=== PATIENT | male | born 1960 ===

== ENCOUNTER 2017-12-04 17:01 | Inpatient (IN) ==
[2017-12-04] MEDS ORDERED: DEXTROSE 50% 25 GM/50 ML VIAL IV ONE (19:33)
[2017-12-04] MEDS ORDERED: GLUCAGON 1 MG VIAL IM PRN (20:04)
[2017-12-04] MEDS ORDERED: ACETAMINOPHEN 325 MG TABLET PO PRN (20:04)
[2017-12-04] MEDS ORDERED: DEXTROSE 50% 25 GM/50 ML VIAL IV PRN (20:04)
[2017-12-04] MEDS ORDERED: ONDANSETRON 4 MG/2 ML VIAL IV PRN (20:04)
[2017-12-04] MEDS: DEXTROSE 10% 1,000 ML IV SCH (20:27)
[2017-12-04] MEDS: DEXAMETHASONE 4 MG/1 ML VIAL IV SCH (20:27)
[2017-12-04 20:50] LABS: Calcium 7.7 MG/DL (8.5-10.1); Osmolality,Calculated 278.1 MOS/KG (273-304); Potassium 2.6 MMOL/L (3.5-5.1)
[2017-12-04] MEDS: POTASSIUM CHLORIDE 20 MEQ TABLET PO SCH (20:54)
[2017-12-04 22:28] LABS: Apearance,Urine CLEAR (Clear); Bilirubin,Urine Negative (Negative); Blood, Urine Negative (Negative); Glucose,Urine (UA) 150 mg/dL (Negative); Ketones,Urine Negative (Negative); Mucus,Urine Occasional /LPF (Occasional); Nitrite,Urine Negative (Negative); Protein,Urine 30 MG/DL; RBC,Urine <1 /HPF (0-4); Squamous Epithelial Cell,Urine Occasional /HPF (0-10); Urine Color Yellow (Yellow); Urine Specific Gravity 1.016 (1.001-1.035); Urine Urobilinogen < 2.0 EU/DL (0.2-1.0); WBC,Urine 1 /HPF (0-6)
[2017-12-04] MEDS: ENOXAPARIN 40 MG/0.4 ML SYRINGE SUBCUT SCH (22:40)
[2017-12-05] MEDS: DEXAMETHASONE 4 MG/1 ML VIAL IV SCH ×4 (02:19→20:57)
[2017-12-05] MEDS: POTASSIUM CHLORIDE 20 MEQ TABLET PO SCH ×6 (02:19→20:57)
[2017-12-05] MEDS: INSULIN LISPRO 100 UNIT/ML SUBCUT SCH ×6 (02:19→20:57)
[2017-12-05 05:56] LABS: Blood Urea Nitrogen 9 MG/DL (7-18); Calcium 8.3 MG/DL (8.5-10.1); Glucose 158 MG/DL (74-106); Osmolality,Calculated 284.1 MOS/KG (273-304); Potassium 3.1 MMOL/L (3.5-5.1); Sodium 142 MMOL/L (136-145); Troponin I Only < 0.015 NG/ML (0.00-0.045)
[2017-12-05] MEDS: DEXTROSE 10% 1,000 ML IV SCH (06:19)
[2017-12-05] MEDS ORDERED: chlordiazePOXIDE 25 MG CAPSULE PO PRN (07:32)
[2017-12-05] MEDS ORDERED: POTASSIUM CHLORIDE 20 MEQ TABLET PO ONE (07:35)
[2017-12-05] MEDS ORDERED: COSYNTROPIN 0.25 MG VIAL IV ONE (07:52)
[2017-12-05] MEDS ORDERED: THIAMINE INJ 100 MG, FOLIC ACID INJ 1 MG, MULTIVITAMIN INJ 10 ML in SODIUM CHLORIDE 0.9... IV SCH (08:00)
[2017-12-05] MEDS: SODIUM CHLORIDE 0.9% 1,000 ML IV SCH ×2 (08:08→17:58)
[2017-12-05] MEDS: ASPIRIN EC 81 MG TABLET PO SCH (08:33)
[2017-12-05] MEDS: LISINOPRIL 10 MG TABLET PO SCH (08:33)
[2017-12-05] MEDS: PANTOPRAZOLE 40 MG TABLET PO SCH (08:33)
[2017-12-05] MEDS: ENOXAPARIN 40 MG/0.4 ML SYRINGE SUBCUT SCH (20:57)
[2017-12-06] MEDS: DEXAMETHASONE 4 MG/1 ML VIAL IV SCH (02:16)
[2017-12-06] MEDS: SODIUM CHLORIDE 0.9% 1,000 ML IV SCH (02:18)
[2017-12-06] MEDS ORDERED: ZIPRASIDONE 20 MG/1 ML VIAL IM ONE (06:14)
[2017-12-06 07:00] LABS: Albumin 2.7 G/DL (3.4-5.0); Bilirubin,Total 0.4 MG/DL (0.2-1.0); Calcium 8.3 MG/DL (8.5-10.1); Osmolality,Calculated 292.8 MOS/KG (273-304); Potassium 3.3 MMOL/L (3.5-5.1); Total Protein 6.1 G/DL (6.4-8.3)
[2017-12-06] MEDS ORDERED: DIAZEPAM 10 MG/2 ML SYRINGE IM PRN (07:39)
[2017-12-06] MEDS ORDERED: HALOPERIDOL 5 MG/ML AMP IM PRN (07:40)
[2017-12-06] MEDS: INSULIN LISPRO 100 UNIT/ML SUBCUT SCH ×4 (08:37→21:07)
[2017-12-06] MEDS: ASPIRIN EC 81 MG TABLET PO SCH (08:38)
[2017-12-06] MEDS: LISINOPRIL 10 MG TABLET PO SCH (08:38)
[2017-12-06] MEDS: DIAZEPAM 5 MG TABLET PO SCH ×7 (08:38→21:07)
[2017-12-06] MEDS: PANTOPRAZOLE 40 MG TABLET PO SCH (08:38)
[2017-12-06] MEDS: CYANOCOBALAMIN 1000 MCG/1 ML VIAL IM SCH (08:38)
[2017-12-06] MEDS: DEXAMETHASONE 4 MG TABLET PO SCH ×2 (08:43→21:07)
[2017-12-06] MEDS: POTASSIUM CHLORIDE 20 MEQ TABLET PO SCH (14:34)
[2017-12-06] MEDS: metFORMIN 500 MG TABLET PO SCH (18:02)
[2017-12-06] MEDS: ENOXAPARIN 40 MG/0.4 ML SYRINGE SUBCUT SCH (21:07)
[2017-12-07] MEDS: DIAZEPAM 5 MG TABLET PO SCH ×5 (04:28→08:26)
[2017-12-07 06:19] LABS: Calcium 8.5 MG/DL (8.5-10.1); Potassium 3.7 MMOL/L (3.5-5.1)
[2017-12-07] MEDS: metFORMIN 500 MG TABLET PO SCH (08:00)
[2017-12-07] MEDS: INSULIN LISPRO 100 UNIT/ML SUBCUT SCH ×4 (08:21→21:28)
[2017-12-07] MEDS: PANTOPRAZOLE 40 MG TABLET PO SCH (08:22)
[2017-12-07] MEDS: ASPIRIN EC 81 MG TABLET PO SCH (08:22)
[2017-12-07] MEDS: DIAZEPAM 5 MG TABLET PO PRN ×2 (08:22→16:13)
[2017-12-07] MEDS: LISINOPRIL 10 MG TABLET PO SCH (08:22)
[2017-12-07] MEDS: CYANOCOBALAMIN 1000 MCG/1 ML VIAL IM SCH (08:23)
[2017-12-07] MEDS: POTASSIUM CHLORIDE 20 MEQ TABLET PO SCH (08:24)
[2017-12-07] MEDS: SODIUM CHLORIDE 0.9% 1,000 ML IV SCH (08:57)
[2017-12-07] MEDS ORDERED: POTASSIUM CHLORIDE 20 MEQ TABLET PO SCH (09:00)
[2017-12-07] MEDS: metFORMIN 850 MG TABLET PO SCH (16:12)
[2017-12-07] MEDS: ENOXAPARIN 40 MG/0.4 ML SYRINGE SUBCUT SCH (21:27)
[2017-12-08 05:41] LABS: Albumin 2.9 G/DL (3.4-5.0); Bilirubin,Total 0.6 MG/DL (0.2-1.0); Osmolality,Calculated 284.1 MOS/KG (273-304); Potassium 3.4 MMOL/L (3.5-5.1)
[2017-12-08 06:02] LABS: Basophils % 0.2 % (0.0-0.8); Eosinophils % 0.2 % (0.00-10.9); Hematocrit 36.6 VOL% (42.0-52.0); Hemoglobin 12.5 GM/DL (14.0-18.0); Immature Granulocytes % 1.7 %; Immature Granulocytes Absolute 0.16 #; Lymphocytes # 2.3 10*3/uL (1.4-4.0); Lymphocytes % 24.4 % (21.2-54.2); Mean Corpuscular HGB Conc 34.2 GM/DL (32-36); Mean Corpuscular Hemoglobin 33 PG (27-34); Mean Corpuscular Volume 97.6 FL (87-102); Mean Platelet Volume 10.7 FL (9.6-12.0); Monocytes # 0.8 10*3/uL (0.11-0.8); Monocytes % 8.7 % (1.7-12.7); Neutrophils # 6.1 10*3/uL (1.4-7.4); Neutrophils % 64.8 % (38.7-73.9); Platelet Count 209 T/CUMM (130-400); Red Blood Count 3.75 MC/CUMM (3.8-5.5); Red Cell Distribution Width 13.6 % (9.3-17.3); White Blood Count 9.4 T/CUMM (4-12)
[2017-12-08 06:03] LABS: Platelet Estimate Adequate
[2017-12-08 06:04] LABS: Hypochromasia 1+; Ovalocytes Slight
[2017-12-08] MEDS: INSULIN LISPRO 100 UNIT/ML SUBCUT SCH (07:15)
[2017-12-08 07:46] VITALS: BP 99/60
[2017-12-08] MEDS: CYANOCOBALAMIN 1000 MCG/1 ML VIAL IM SCH (08:28)
[2017-12-08] MEDS: PANTOPRAZOLE 40 MG TABLET PO SCH (08:28)
[2017-12-08] MEDS: LISINOPRIL 10 MG TABLET PO SCH (08:28)
[2017-12-08] MEDS: POTASSIUM CHLORIDE 20 MEQ TABLET PO SCH (08:28)
[2017-12-08] MEDS: metFORMIN 850 MG TABLET PO SCH (08:28)
[2017-12-08] MEDS: ASPIRIN EC 81 MG TABLET PO SCH (08:28)
== END 2017-12-08 10:31 | disposition home or self-care (01) | DRG 420 ==
LOC: SUATTDRO 19:11 → N.ICU 19:11 → N.5E 12-05 09:02
PROVIDERS: ADMIT Family Medicine; ATTEND Internal Medicine